=== PATIENT | male | born 1990 | race African-American/Black ===

== ENCOUNTER 2016-03-04 11:12 | Emergency (ER) | payer OTHER ==
[2016-03-04] MEDS ORDERED: ceFAZolin 1 GM in Dextrose (*) 1 GM/50 ML BAG IVPB ONE (11:40)
[2016-03-04] MEDS ORDERED: Morphine INJ* 4 MG/ML 1 ML CARPUJECT IV ONE ×2 (11:40→13:52)
[2016-03-04] MEDS ORDERED: Ondansetron INJ* 2 MG/ML VIAL IV ONE (11:40)
[2016-03-04] MEDS ORDERED: NS 0.9% 1000 ML* 1,000 ML IV ONE (11:40)
[2016-03-04 11:53] LABS: Hematocrit 40 % (42-52); Hemoglobin 13.5 g/dl (14.0-18.0); Mean Corpuscular HGB Conc 34 g/dl (31-36); Mean Corpuscular Hemoglobin 31 pg (27-31); Mean Corpuscular Volume 91 fL (80-94); Mean Platelet Volume 9 um3 (7.4-10.4); Red Blood Count 4.41 10^6/ul (4.0-5.4); Red Cell Distribution Width 14 % (10.5-15); White Blood Count 5.7 10^3/ul (3.5-10.8)
[2016-03-04 12:04] LABS: Albumin 4.5 g/dL (3.2-5.2); BUN/Creatinine Ratio 10.6 (8-20); Calcium 9.7 mg/dL (8.6-10.3); EGFR African American 123.8 (>60); EGFR Non-African American 96.3 (>60); Globulin 2.9 g/dL (2-4); Potassium 4.2 mmol/L (3.5-5.0); Total Bilirubin 0.6 mg/dL (0.2-1.0); Total Protein 7.4 g/dL (6.4-8.9)
--- NOTE | 2016-03-04 12:30 | RAD ---
HISTORY: Right hand crush injury COMPARISONS: None VIEWS: 4, Frontal, lateral, and oblique views of the right hand FINDINGS: BONE DENSITY: Normal. BONES: There is a comminuted and displaced fracture of the tuft of the distal phalanx of the third digit of the right hand JOINTS: There is no arthropathy. ALIGNMENT: There is no dislocation. SOFT TISSUES: Unremarkable. OTHER FINDINGS: None. IMPRESSION: COMMINUTED AND DISPLACED FRACTURE OF THE TUFT OF THE DISTAL PHALANX OF THE THIRD DIGIT OF THE RIGHT HAND
[2016-03-04 13:48] VITALS: BP 117/77
--- NOTE | 2016-03-04 15:09 | ED ---
[facility], scribed for Ananth Mcmanus MD on 03/04/16 at 1155 . Upper Extremity Pain - HPI Summary HPI Summary: 25yo male who presents a 3rd finger of right hand injury with laceration during lifting weights. Pt is able to bend his finger with pain. - History of Current Complaint Chief Complaint: EDExtremityLower Stated Complaint: POSSIBLE FRACTURE RT HAND Time Seen by Provider: 03/04/16 11:28 Hx Obtained From: Patient Mechanism Of Injury: Blunt Trauma Onset/Duration: Started Hours Ago, Traumatic, Still Present Timing: Constant Severity Initially: Moderate Severity Currently: Moderate Pain Location: Finger - right 3rd Aggravating Factor(s): Movement, Flexion Alleviating Factor(s): Nothing Associated Signs & Symptoms: Positive: Swelling, Bruising - Allergies/Home Medications Allergies/Adverse Reactions: Allergies Allergy/AdvReac Type Severity Reaction Status Date / Time No Known Allergies Allergy Verified 03/04/16 11:57 Home Medications: Home Medications Albuterol HFA INHALER* [Ventolin HFA Inhaler*] 2 puff INH QID 03/04/16 [History Confirmed 03/04/16] Fluticas/Salmet 115/21 HFA(NF) [Advair HFA 115/21 (NF)] 2 puff INH BID 03/04/16 [History Confirmed 03/04/16] Ibuprofen TAB* [Motrin TAB* 600 MG] 600 mg PO TID PRN 03/04/16 [History Confirmed 03/04/16] busPIRone TAB* [Buspar *] 30 mg PO QPM 03/04/16 [History Confirmed 03/04/16] PMH/Surg Hx/FS Hx/Imm Hx Infectious Disease History: No Infectious Disease History: Denies: Traveled Outside the [place] in Last 30 Days - Social History Alcohol Use: None Substance Use Type: Reports: None Smoking Status (MU): Heavy Every Day Tobacco Smoker Review of Systems Constitutional: Negative Eyes: Negative ENT: Negative Cardiovascular: Negative Respiratory: Negative Gastrointestinal: Negative Genitourinary: Negative Musculoskeletal: Negative Positive: Bruising - rt 3rd finger, Other - rt 3rd finger laceration, also painful Neurological: Negative Psychological: Normal All Other Systems Reviewed And Are Negative: Yes Physical Exam - Summary Physical Exam Summary: The patient is well-nourished in no acute distress and in no acute pain. The skin is warm and dry and skin color reflects adequate perfusion. HEENT: The head is normocephalic and atraumatic. The pupils are equal and reactive. The conjunctivae are clear and without drainage. Nares are patent and without drainage. Mouth reveals moist mucous membranes and the throat is without erythema and exudate. The external ears are intact. The ear canals are patent and without drainage. The tympanic membranes are intact. Neck is supple with full range of motion and non-tender. There are no carotid bruits. There is no neck vein distension. Respiratory: Chest is non-tender. Lungs are clear to auscultation and breath sounds are symmetrical and equal. Cardiovascular: Hear is regular rate and rhythm. There is no murmur or rub auscultated. There is no peripheral edema and pulses are symmetrical and equal. Abdomen: The abdomen is soft and non-tender. There are normal bowel sounds heard in all four quadrants and there is no organomegaly palpated. Musculoskeletal: There is no back pain noted. Extremities are non-tender with full range of motion. There is good capillary refill. There is no peripheral edema or calf tenderness elicited. Almost circumferential laceration on the Rt 3 rd finger on the DIPJ. Subungal hematoma, with some bony exposure on the ulnar aspect. Able to move and bend 3rd right finger, but limited due to pain. Neurological: Patient is alert and oriented to person, place and time. The patient has symmetrical motor strength in all four extremities. Cranial nerves are grossly intact. Deep tendon reflexes are symmetrical and equal in all four extremities. Psychiatric: The patient has an appropriate affect and does not exhibit any anxiety or depression. Triage Information Reviewed: Yes Vital Signs On Initial Exam: Initial Vitals Temp Pulse Resp BP Pulse Ox 98.2 F 98 20 124/81 99 03/04/16 11:25 03/04/16 11:25 03/04/16 11:25 03/04/16 11:25 03/04/16 11:25 Vital Signs Reviewed: Yes - Severiano Coma Scale Coma Scale Total: 15 Diagnostics - Vital Signs Vital Signs Temp Pulse Resp BP Pulse Ox 03/04/16 11:25 98.2 F 98 20 124/81 99 - Laboratory Lab Results: Lab Results 03/04/16 03/04/16 03/04/16 Range/Units 11:20 11:20 11:20 WBC 5.7 (3.5-10.8) 10^3/ul RBC 4.41 (4.0-5.4) 10^6/ul Hgb 13.5 L (14.0-18.0) g/dl Hct 40 L (42-52) % MCV 91 (80-94) fL MCH 31 (27-31) pg MCHC 34 (31-36) g/dl RDW 14 (10.5-15) % Plt Count 249 (150-450) 10^3/ul MPV 9 (7.4-10.4) um3 Neut % (Auto) 48.9 (38-83) % Lymph % (Auto) 34.8 (25-47) % Wise % (Auto) 13.4 H (1-9) % Eos % (Auto) 2.3 (0-6) % Baso % (Auto) 0.6 (0-2) % Absolute Neuts (auto) 2.8 (1.5-7.7) 10^3/ul Absolute Lymphs (auto) 2.0 (1.0-4.8) 10^3/ul Absolute Monos (auto) 0.8 (0-0.8) 10^3/ul Absolute Eos (auto) 0.1 (0-0.6) 10^3/ul Absolute Basos (auto) 0 (0-0.2) 10^3/ul Absolute Nucleated RBC 0 10^3/ul Nucleated RBC % 0.1 INR (Anticoag Therapy) 1.06 (0.89-1.11) Sodium 138 (133-145) mmol/L Potassium 4.2 (3.5-5.0) mmol/L Chloride 105 (101-111) mmol/L Carbon Dioxide 27 (22-32) mmol/L Anion Gap 6 (2-11) mmol/L BUN 10 (6-24) mg/dL Creatinine 0.94 (0.67-1.17) mg/dL Est GFR ( Amer) 123.8 (>60) Est GFR (Non-Af Amer) 96.3 (>60) BUN/Creatinine Ratio 10.6 (8-20) Glucose 100 (70-100) mg/dL Calcium 9.7 (8.6-10.3) mg/dL Total Bilirubin 0.60 (0.2-1.0) mg/dL AST 23 (13-39) U/L ALT 32 (7-52) U/L Alkaline Phosphatase 53 (34-104) U/L Total Protein 7.4 (6.4-8.9) g/dL Albumin 4.5 (3.2-5.2) g/dL Globulin 2.9 (2-4) g/dL Albumin/Globulin Ratio 1.6 (1-3) Result Diagrams: 03/04/16 11:20 03/04/16 11:20 Lab Statement: Any lab studies that have been ordered have been reviewed, and results considered in the medical decision making process. - Radiology right hand XR Xray Interpretation: Positive (See Comments) - IMPRESSION: COMMINUTED AND DISPLACED FRACTURE OF THE TUFT OF THE DISTAL PHALANX OF THE THIRD DIGIT OF THE RIGHT HAND Radiology Interpretation Completed By: Radiologist Course/Dx - Course Course Of Treatment: Unable to close the wound. Will call ortho for consult. - Diagnoses Provider Diagnoses: open fracture of the right third finger - Physician Notifications Discussed Care Of Patient With: Dr. Childs (Ortho) @1400. Consulted pt case. She will send her PA to ED to evaluate the pt. Colleen Brittney, (Ortho PA) @ 1410. Discharge - Discharge Plan Condition: Stable Disposition: HOME Patient Education Materials: Finger Fracture (ED) Referrals: Manan Lion MD [Medical Doctor] - 1 Week Additional Instructions: RECOMMENDATIONS: -Keflex 500m9 4 times a day for 7 days -Percocet every 6 hours as needed -Keep dressing in place for 48 hours -Wound recheck after 48 hours -Follow up with Dr. Lion (Orthopedic surgeon) in 1 week. The documentation as recorded by the [facility] accurately reflects the service I personally performed and the decisions made by , Ananth Mcmanus MD.
--- NOTE | 2016-03-04 15:20 | CONSULT ---
Consult Consult: Patient is a 25 y/o male who dropped two 90 lb dumbells on his dominant right long finger at 10 am this morning sustaining a distal tuft fracture and a deep laceration nearly circumfrentially with nail bed injury and hematoma. He was evaluated by Dr. Mcmanus and digital block and repair was attempted by Andrés WU without success. Orthopedic consultation was advised and again consent for repair of the distal finger laceration was obtained from the patient. Past medical history: Asthma Past surgical history: none Medications: Albuterol inhaler Advair Ibuprofen Buspar Social Hx: Heavy smoker prisoner at [facility] Physical examination: Patient alert and oriented times 3, pain well managed with digital block. Examination of the right 3rd finger revealed a deep nearly circumferential laceration near the DIP joint. Sensation could not be assessed as digital block was in place prior to my examination. He had ability to flex and extend slightly at the DIP joint. subungual hematoma with lifting of the nail bed noted. Procedure: Copious irrigation with sterile saline mixed with chlorohexadine was preformed. Multiple 3-0 nylon sutures were placed to repair the laceration. 13 sutures were placed. Finger appeared to be well aligned. Bleeding well controlled. A/P: Well approximated repair of finger laceration, right long finger with distal tuft fracture Follow up with Dr. Lion next week Change dressing in 2 days Pain medications and Keflex per Dr. Mcmanus
== END 2016-03-04 15:16 | disposition home or self-care (01) ==
LOC: ED 11:12
DX: S62.632B Displaced fracture of distal phalanx of right middle finger, initial encounter for open fracture (principal); Y92.9 Unspecified place or not applicable; W20.8XXA Other cause of strike by thrown, projected or falling object, initial encounter; Y93.B3 Activity, free weights; J45.909 Unspecified asthma, uncomplicated; Z72.0 Tobacco use
CPT/HCPCS: 12001; 36415; 80053; 85025; 85610; 96360; 96374; 96375; 96376; 99284; J0690; J2270; J2405